=== PATIENT | male | born 1980 | race Caucasian/White ===

== ENCOUNTER → 2021-02-15 | Outpatient (CLI) | payer BC ==
--- NOTE | 2021-02-15 16:29 | XR ---
Chest x-ray with right RIBS HISTORY: Trauma and pain Frontal view of the chest and 4 views of the right ribs submitted, no comparisons Slight angulation is noted at the 10th rib laterally, there is associated lucency consistent with fra cture. There is no evident pneumothorax or pleural effusion. Cardiac mediastinal silhouette is within normal limits. Postop change noted in the proximal left humerus. IMPRESSION: Suspect 10th rib fracture. Bone scan could be performed for increased sensitivity as amanda cated. Postop changes.
== END | disposition home or self-care (01) ==
LOC: RADXRYALE 15:42
PROVIDERS: ATTEND Physician Assistant Medical
DX: R07.82 Intercostal pain (principal); Z98.890 Other specified postprocedural states

== ENCOUNTER → 2021-11-21 | Outpatient (CLI) | payer BC ==
--- NOTE | 2021-11-21 12:55 | XR ---
EXAMINATION TYPE: XR chest 2V DATE OF EXAM: 11/21/2021 COMPARISON: Chest x-ray 02/15/2021 HISTORY: Cough for 2 months TECHNIQUE: Frontal and lateral views of the chest are obtained. FINDINGS: Lung volumes are somewhat low. Postop changes are noted to the left shoulder. No evident a irspace disease, pneumothorax, or pleural effusion. There is thoracic spondylosis. Cardiac mediastina l silhouette is within normal limits. There is bronchial wall thickening. IMPRESSION: Correlate for bronchitis, reactive airways disease, follow-up as indicated
== END | disposition home or self-care (01) ==
LOC: RADXRYALE 09:34
PROVIDERS: ATTEND Physician Assistant
DX: R05.9 Cough, unspecified (principal)
CPT/HCPCS: 71046

== ENCOUNTER → 2022-10-16 | Outpatient (CLI) | payer BC ==
--- NOTE | 2022-10-16 09:29 | US ---
EXAMINATION TYPE: US abdomen limited DATE OF EXAM: 10/16/2022 COMPARISON: NONE CLINICAL HISTORY: K42.9 UMBILICAL HERNIA WITHOUT OBSTRUCTION OR GANG. Assess for hernia at location of: Umbilicus Patient has obvious hernia as his umbilicus. There is round pink protruding area of approximately 2cm. Break of 2.4cm at umbilicus. IMPRESSION: Umbilical hernia is noted. Real-time scanning was performed by the junior underwriter utilizing Valsalva and additional dynamic maneuve rs to assess for hernia. Images of the contralateral side were also acquired for direct comparison.
== END | disposition home or self-care (01) ==
LOC: RADUSWWP 06:42
PROVIDERS: ATTEND Family Medicine
DX: K42.9 Umbilical hernia without obstruction or gangrene (principal)
CPT/HCPCS: 76705